=== PATIENT | male | born 1960 | race Caucasian/White ===

== ENCOUNTER 2016-05-22 12:54 | Emergency (ER) | payer SELFPAY ==
[~2016-05-22] VITALS: Ht 170.2 cm; Wt 100.0 kg
[~2016-05-22 12:54] MED LIST: COLC0.6T6 PO; CYCL-319 PO; HYD25 PO; HYDR-3498 PO; INDO25CA25 PO; LISI20TA11 PO; LORA10CA PO; TAMS-14 PO; ULT50 PO
[2016-05-22 13:00] VITALS: Ht 170.2 cm; Wt 100.0 kg
[2016-05-22] MEDS ORDERED: morphine 2 MG INJ IV STA (15:21)
[2016-05-22] MEDS ORDERED: KETOROLAC 30 MG INJ IV STA (15:21)
[2016-05-22 15:59] LABS: URINE BLOOD (Dip) POC 2+ (NEGATIVE)
[2016-05-22 16:06] LABS: BASOPHILS % 0.4 % (0.0-2.0); EOSINOPHILS # 0.2 10^3/ul (0.0-0.5); EOSINOPHILS % 1.9 % (0.0-7.0); HEMATOCRIT 48.4 % (42.0-52.0); HEMOGLOBIN 16.5 g/dl (14.0-18.0); LYMPHOCYTES # 1.7 10^3/ul (0.8-2.9); LYMPHOCYTES % 18.3 % (15.0-51.0); MEAN CORPUSCULAR HEMOGLOBIN 29.7 pg (29.0-33.0); MEAN CORPUSCULAR HGB CONC 34.1 g/dl (32.0-37.0); MEAN CORPUSCULAR VOLUME 86.9 fl (82.0-101.0); MEAN PLATELET VOLUME 8.3 fl (7.4-10.4); MONOCYTE # 0.6 10^3/ul (0.3-0.9); MONOCYTES % 6.2 % (0.0-11.0); NEUTROPHIL # 6.7 10^3/ul (1.6-7.5); NEUTROPHILS % 73.2 % (39.0-77.0); PLATELET COUNT 239 10^3/UL (140-440); RED BLOOD COUNT 5.57 10^6/ul (4.70-6.10); RED CELL DISTRIBUTION WIDTH 13.1 % (11.5-14.5); UNCORRECTED WBC 9.1 10^3/ul (4.8-10.8); WHITE BLOOD COUNT 9.1 10^3/ul (4.8-10.8)
[2016-05-22 16:07] LABS: CONDITION 1
[2016-05-22 16:41] LABS: ALBUMIN 4.6 g/dl (3.3-4.9); POTASSIUM 3.6 mmol/L (3.5-5.1)
[2016-05-22 16:43] LABS: BILIRUBIN,INDIRECT 0.5 mg/dl (0-1.1); BILIRUBIN,TOTAL 0.5 mg/dl (0.2-1.3); CREATININE 0.87 mg/dl (0.61-1.24)
[2016-05-22 16:44] LABS: ALBUMIN/GLOBULIN RATIO 1.04; CALCIUM 9.7 mg/dl (8.4-10.2)
[2016-05-22 18:02] VITALS: BP 143/88; PULSE 78; RESP 18; TEMP 98.2
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
== END 2016-05-22 18:10 | disposition home or self-care (01) ==
LOC: FTE 12:54
DX: M54.41 Lumbago with sciatica, right side (principal); I10 Essential (primary) hypertension; E11.9 Type 2 diabetes mellitus without complications; Z72.0 Tobacco use
CPT/HCPCS: 36415; 80053; 81003; 83690; 85025; 93005; 96374; 96375; 99284; J1885; J2270

== ENCOUNTER 2016-10-09 14:33 | Emergency (ER) | payer SELFPAY ==
[~2016-10-09] VITALS: Wt 103.5 kg
[~2016-10-09 14:33] MED LIST changes: +TRAM50TA2 PO; -ULT50 PO
[2016-10-09] MEDS ORDERED: ONDANSETRON (ODT) 4 MG TAB ODT STA (15:01)
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
[2016-10-09] MEDS ORDERED: DIPHENHYDRAMINE 25 MG CAP PO ONE (15:30)
[2016-10-09] MEDS ORDERED: METOCLOPRAMIDE 10 MG TAB PO ONE (15:30)
[2016-10-09] MEDS ORDERED: FIORICET PO (16:11)
[2016-10-09] MEDS ORDERED: ONDA4TAB8 PO (16:11)
--- NOTE | 2016-10-09 17:03 | RADRPT ---
PROCEDURE: CT Brain without contrast. CLINICAL INDICATION: Headache. Nausea. TECHNIQUE: A CT of the brain was performed on a multidetector CT scanner utilizing axial imaging f rom the skull base through the vertex without IV contrast. Multiplanar reformatted images were made . Images were reviewed on a PACS workstation. The CTDIvol is the 45 mGy and the DLP is at 712 mGyc m. COMPARISON: Right head CT February 04, 2016 FINDINGS: There is no intracranial hemorrhage, mass effect, or midline shift. No extra-axial fluid collection is seen. The ventricles and sulci are normal in size and configuration. The density of the brain is normal, and the beltran white matter differentiation appears well-preserved. The visualized paranasal sinuses and osseous structures are grossly unremarkable. IMPRESSION: 1. No evidence of acute intracranial pathology. 2. The brain is normal in appearance. .Elvin Dalton MD, Date Time Electronically viewed and signed by .Elvin Dalton MD, on 10/09/2016 17:03 .A/
[2016-10-09 17:26] VITALS: BP 138/74; PULSE 83; RESP 18
== END 2016-10-09 17:27 | disposition home or self-care (01) ==
LOC: FTE 14:33
DX: R51 Headache (principal); R11.0 Nausea; I10 Essential (primary) hypertension; E11.9 Type 2 diabetes mellitus without complications; Z87.891 Personal history of nicotine dependence
CPT/HCPCS: 70450

== ENCOUNTER 2017-01-19 08:19 | Emergency (ER) | payer SELFPAY ==
[~2017-01-19] VITALS: Ht 175.3 cm; Wt 95.0 kg
[~2017-01-19 08:19] MED LIST changes: +FIORICET PO; -HYD25 PO; +HYDR25TA6 PO; +ONDA4TAB8 PO
[2017-01-19 08:26] VITALS: Ht 175.3 cm; Wt 95.0 kg
[2017-01-19] MEDS ORDERED: IBUPROFEN 200 MG TAB PO ONE (09:00)
[2017-01-19 09:39] LABS: BASOPHILS % 0.4 % (0.0-2.0); EOSINOPHILS # 0.1 10^3/ul (0.0-0.5); HEMOGLOBIN 16.9 g/dl (14.0-18.0); LYMPHOCYTES # 2.5 10^3/ul (0.8-2.9); LYMPHOCYTES % 23.9 % (15.0-51.0); MEAN CORPUSCULAR HEMOGLOBIN 29.9 pg (29.0-33.0); MEAN CORPUSCULAR HGB CONC 34.5 g/dl (32.0-37.0); MEAN CORPUSCULAR VOLUME 86.6 fl (82.0-101.0); MEAN PLATELET VOLUME 10.3 fl (7.4-10.4); MONOCYTE # 0.6 10^3/ul (0.3-0.9); MONOCYTES % 5.7 % (0.0-11.0); NEUTROPHILS % 68.8 % (39.0-77.0); PLATELET COUNT 258 10^3/UL (140-415); RED BLOOD COUNT 5.66 10^6/ul (4.70-6.10); RED CELL DISTRIBUTION WIDTH 12.9 % (11.5-14.5); WHITE BLOOD COUNT 10.4 10^3/ul (4.8-10.8)
[2017-01-19 09:57] LABS: ADD UMIC YES; UR ASCORBIC ACID NEGATIVE (NEGATIVE); UR BILIRUBIN (Dip) NEGATIVE (NEGATIVE); UR BLOOD (Dip) 1+ mg/dL (NEGATIVE); UR CLARITY SLIGHTLY CLOUDY (CLEAR); UR COLOR AMBER (YELLOW); UR GLUCOSE (Dip) 3+ mg/dL (NEGATIVE); UR KETONES (Dip) NEGATIVE (NEGATIVE); UR LEUKOCYTE ESTERASE (Dip) NEGATIVE Leu/ul (NEGATIVE); UR MUCUS MANY /HPF (NONE SEEN); UR NITRITE (Dip) NEGATIVE (NEGATIVE); UR RBC 4 /HPF (0-5); UR SPECIFIC GRAVITY (Dip) 1.023 (1.003-1.030); UR TOTAL PROTEIN (Dip) 2+ mg/dl (NEGATIVE); UR UROBILINOGEN (Dip) 1+ mg/dL (NEGATIVE)
[2017-01-19 10:02] LABS: ALBUMIN 4.7 g/dl (3.3-4.9); ALBUMIN/GLOBULIN RATIO 1.06; BILIRUBIN,INDIRECT 0.4 mg/dl (0-1.1); BILIRUBIN,TOTAL 0.4 mg/dl (0.2-1.3); C-REACTIVE PROTEIN 1.4 mg/dl (0.0-0.9); CREATININE 0.82 mg/dl (0.61-1.24); POTASSIUM 4.2 mmol/L (3.5-5.1); TOTAL PROTEIN 9.1 g/dl (6.1-8.1)
--- NOTE | 2017-01-19 10:03 | RADRPT ---
PROCEDURE: Right elbow series CLINICAL INDICATION: Pain. TECHNIQUE: 4 views. AP, lateral, and oblique. COMPARISON: None FINDINGS: No effusions are visualized. No fractures are noted. Joint spaces are well maintained. No erosions are noted. There is a 6 mm posterior olecranon spur. There is mild adjacent soft tissue swelling. This may repr esent a mild olecranon bursitis. IMPRESSION: 1. 6-mm posterior olecranon spur. 2. Mild adjacent soft tissue swelling that may represent a mild olecranon bursitis. RPTAT: HGSG .Avni Hill MD, Date Time Electronically viewed and signed by .Avni Hill MD, on 01/19/2017 10:03 .G/
[2017-01-19] MEDS ORDERED: IBUP-1542 PO (10:52)
[2017-01-19 11:10] VITALS: BP 146/78; PULSE 79; RESP 18; TEMP 98.4
--- NOTE | 2017-01-19 13:27 | ERD ---
ER Documentation Chief Complaint Date/Time DATE: 01/19/17 TIME: 13:20 Chief Complaint R elbow pain for 3 days no recent injury HPI This is a 56-year-old male with a past medical history of diabetes, hypertension , hyperlipidemia that presents to the ER with right elbow pain that has been going on over the last 6 years after patient had a back surgery. Patient states that over the last 3 days he has been experiencing increased right elbow pain, redness and swelling. Patient states that pain is worse whenever he moves his elbow. He denies any shoulder or wrist pain. Patient denies any fevers or chills. He denies any trauma to the area. Pain is throbbing in quality is nonradiating. He has not tried any medication for his pain.Patient denies any numbness or tingling of his upper extremity. ROS 12 point review of systems was done, all negative except per HPI. Medications Home Meds Active Scripts Ibuprofen* (Motrin*) 600 Mg Tab, 600 MG PO Q6, #30 TAB Prov:LEA FREIRE 01/19/17 Ondansetron Hcl* (Zofran*) 4 Mg Tablet, 4 MG PO Q6H for NAUSEA AND/OR VOMITING, #20 TAB Prov:GIL DUNCAN NP 10/09/16 Acetamin/Butalbital/Caffeine* (Fioricet*) [id number] Tab, 1 TAB PO Q6H Y for PAIN, #15 TAB Prov:GIL DUNCAN NP 10/09/16 Loratadine* (Claritin*) 10 Mg Capsule, 10 MG PO DAILY, #30 CAP Prov:WONG ESPANA PA-C 02/04/16 Tramadol HCl (Tramadol HCl) 50 Mg Tablet, 50 MG PO Q4 Y for PAIN, #20 TAB Prov:WONG ESPANA PA-C 02/04/16 Colchicine* (Colcrys*) 0.6 Mg Tablet, 0.6 MG PO BID for 3 Days, TAB Prov:JUAN RAMON GRACIA MD 01/22/16 Indomethacin* (Indocin*) 25 Mg Capsule, 25 MG PO Q6, #20 CAP Prov:JUAN RAMON GRACIA MD 01/22/16 Tamsulosin Hcl* (Flomax*) 0.4 Mg Cap.er.24h, 0.4 MG PO qday, #30 CAP Prov:JHONATHAN HOPKINS DO 04/09/15 Tamsulosin Hcl* (Flomax*) 0.4 Mg Cap.er.24h, 0.4 MG PO BID, #30 CAP Prov:OSWALDOROC 03/13/15 Hydrochlorothiazide* (Hydrochlorothiazide*) 25 Mg Tab, 25 MG PO DAILY, #30 TAB 2 Refills Prov:JUAN RAMON GRACIA MD 01/27/15 Lisinopril* (Lisinopril*) 20 Mg Tablet, 20 MG PO DAILY, #30 TAB 2 Refills Prov:JUAN RAMON GRACIA MD 01/27/15 Tamsulosin Hcl* (Flomax*) 0.4 Mg Cap.er.24h, 0.4 MG PO DAILY, #20 CAP Prov:ISSAC JONES 01/03/15 Hydrocodone Bit-Acetaminophen* (Nixon*) 5-325 Mg Tab, 1 TAB PO Q6 Y for PAIN, # 10 TAB Prov:ADILSON BROWN NP 01/01/15 Cyclobenzaprine Hcl* (Cyclobenzaprine Hcl*) 10 Mg Tablet, 5 MG PO TID, #15 TAB Prov:ADILSON BROWN NP 01/01/15 Allergies Allergies: Coded Allergies: No Known Drug Allergies (Verified Allergy, Mild, 01/19/17) PMhx/Soc History of Surgery: Yes (Lumbar surgery) Anesthesia Reaction: No Hx Neurological Disorder: No Hx Respiratory Disorders: No Hx Cardiac Disorders: Yes (HTN) Hx Psychiatric Problems: No Hx Miscellaneous Medical Probl: Yes (LUMBAR BACK PAIN-FROM INJURY; DM) Hx Alcohol Use: No Hx Substance Use: No Hx Tobacco Use: Yes Smoking Status: Current some day smoker Physical Exam Vitals Vital Signs Date Time Temp Pulse Resp B/P Pulse Ox O2 Delivery O2 Flow Rate FiO2 01/19/17 11:10 98.4 79 18 146/78 97 Room Air 01/19/17 08:26 98.4 98 18 158/91 97 Physical Exam GENERAL: The patient is well developed and appropriate for usual state of health , in no apparent distress. HEENT: Atraumatic. CHEST: Clear to auscultation bilaterally. There are no rales, wheezes or rhonchi. HEART: Regular rate and rhythm. No murmurs, clicks, rubs or gallops. EXTREMITIES: The right elbow has an area of erythema and edema to the olecranon , tender to palpation over the olecranon. No obvious surface trauma, ecchymosis. No tenderness to palpation of the lateral lower medial epicondyles , or radial head. Patient has painful flexion and extension however he has full range of motion. He has normal supination and pronation. Normal muscle strength. Intact motor and sensation of the ulnar median and radial nerves. NEURO: Alert and oriented. Cranial nerves II through XII are intact. Motor strength in all 4 extremities with 5/5 strength. Sensation grossly intact. Normal speech and gait. SKIN: There is no apparent rash or petechia. The skin is warm and dry. Result Diagram: 01/19/1790401/19/17904 Results 24 hrs Laboratory Tests Test 01/19/17 09:05 01/19/17 09:15 White Blood Count 10.410^3/ul Red Blood Count 5.6610^6/ul Hemoglobin 16.9g/dl Hematocrit 49.0% Mean Corpuscular Volume 86.6fl Mean Corpuscular Hemoglobin 29.9pg Mean Corpuscular Hemoglobin Concent 34.5g/dl Red Cell Distribution Width 12.9% Platelet Count 50094^3/UL Mean Platelet Volume 10.3fl Neutrophils % 68.8% Lymphocytes % 23.9% Monocytes % 5.7% Eosinophils % 1.0% Basophils % 0.4% Nucleated Red Blood Cells % 0.0/100WBC Neutrophils # (Manual) 7.110^3/ul Lymphocytes # 2.510^3/ul Monocytes # 0.610^3/ul Eosinophils # 0.110^3/ul Basophils # 0.010^3/ul Nucleated Red Blood Cells # 0.010^3/ul Erythrocyte Sedimentation Rate 13mm/Hr Sodium Level 138mmol/L Potassium Level 4.2mmol/L Chloride Level 100mmol/L Carbon Dioxide Level 26mmol/L Anion Gap 16 Blood Urea Nitrogen 11mg/dl Creatinine 0.82mg/dl Glucose Level 306mg/dl Calcium Level 10.0mg/dl Total Bilirubin 0.4mg/dl Direct Bilirubin 0.00mg/dl Indirect Bilirubin 0.4mg/dl Aspartate Amino Transf (AST/SGOT) 41IU/L Alanine Aminotransferase (ALT/SGPT) 68IU/L Alkaline Phosphatase 103IU/L C-Reactive Protein 1.4mg/dl Total Protein 9.1g/dl Albumin 4.7g/dl Globulin 4.40g/dl Albumin/Globulin Ratio 1.06 Urine Color LORENZO Urine Clarity SLIGHTLY CLOUDY Urine pH 5.0 Urine Specific Porter 1.023 Urine Ketones NEGATIVEmg/dL Urine Nitrite NEGATIVEmg/dL Urine Bilirubin NEGATIVEmg/dL Urine Urobilinogen 1+mg/dL Urine Leukocyte Esterase NEGATIVELeu/ul Urine Microscopic RBC 4/HPF Urine Microscopic WBC 6/HPF Urine Granular Casts FEW/HPF Urine Mucus MANY/HPF Urine Hemoglobin 1+mg/dL Urine Glucose 3+mg/dL Urine Total Protein 2+mg/dl Current Medications Medications (Trade) Dose Ordered Sig/Jeff Route PRN Reason Start Time Stop Time Status Last Admin Dose Admin Ibuprofen (Motrin) 400 mg ONCE ONCE PO 01/19/17 09:00 01/19/17 09:02 DC 01/19/17 09:12 [place] [id number] Radiology Main Line: [phone] DIAGNOSTIC IMAGING REPORT Patient: ELMO BARRIOS : 1960 Age: 56 Sex: M MR #: [id number] DOS: 01/19/17 0000 Ordering MD: LEA FREIRE PA-C Location: [facility]TE Room/Bed: PROCEDURE: Right elbow series CLINICAL INDICATION: Pain. TECHNIQUE: 4 views. AP, lateral, and oblique. COMPARISON: None FINDINGS: No effusions are visualized. No fractures are noted. Joint spaces are well maintained. No erosions are noted. There is a 6 mm posterior olecranon spur. There is mild adjacent soft tissue swelling. This may represent a mild olecranon bursitis. IMPRESSION: 1. 6-mm posterior olecranon spur. 2. Mild adjacent soft tissue swelling that may represent a mild olecranon bursitis. RPTAT: HGSG .Avni Hill MD, MD Date Time Electronically viewed and signed by .Avni Hill MD, on 01/19/2017 10: 03 .G/ CC: LEA FREIRE/[facility] --=Differential diagnosis includes but is not limited to fracture, dislocation, olecranon bursitis, septic joint, septic arthritis, compartment syndrome. This is a 56-year-old male presents to the ER with right elbow pain. Patient does have acute on chronic pain, however appears to have developed olecranon bursitis. At this time patient is afebrile and well-appearing suspicion for infectious olecranon bursitis is low. Suspicion for septic joint is low. Suspicion for compartment syndrome is low. Patient blood sugar was elevated into the 300s, there is no evidence of ketones or acidosis patient stated that he has not gone to the doctor to get medications, however will go this week. Patient's blood pressure was elevated, patient however is not having any hypertensive emergency or urgency. I discussed the importance of being compliant with his medications. Patient will follow up with his primary care doctor within 1-2 days. He needs to return to ER sooner if symptoms worsen. My medical decision making shared with the patient he understands and agrees with plan. Departure Diagnosis: Primary Impression: Olecranon bursitis Condition: Stable Patient Instructions: Bursitis, Elbow (Olecranon) [facility]errals[facility] Usted se kern hecho un examen mdico de control que le indica que no est en elsa condicin que requiera tratamiento urgente en el Departamento de Emergencia. Un estudio ms profundo y el tratamiento de lopez condicin pueden esperar sin ningn riesgo hasta que usted sea atendida/o en el consultorio de lopez mdico o elsa cl yazmin. Es responsabilidad suya arreglar elsa heide para el seguimiento del rao. MANEJO DE CONDICIONES NO URGENTES EN EL FUTURO 1) Si usted tiene un mdico de atencin primaria: Usted debera llamar a lopez mdico de atencin primaria antes de venir al departamento de emergencia. Despus de las horas de consultorio, lopez doctor o lopez asociado/a est disponible por telfono. El mdico o enfermero de yovanny en el servicio telefnico puede asesorarle por jaydon medio para atender el problema, o rao contrario se puede programar elsa heide. 2) Si usted no tiene un mdico de atencin primaria: Llame al mdico o clnica de referencia que aparece abajo brittni las horas de consultorio para hacer elsa heide para que le vean. CLINICAS: [place] [address] [phone] [facility] [phone] [place] [address] [phone] [facility]. [place] [id number] [phone] [facility]. [place] [address] [phone] [facility]. [phone] [address] Additional Instructions: Llame al doctor MAANA y mabel elsa HEIDE PARA DENTRO DE 1-2 ZAMORA.Dgale a la secretaria que nosotros le instruimos hacer esta heide.Avise o llame si lopez condicin se empeora antes de la heide. Regresa aqui si peor o no mejor. LEA FREIRE Jan 19, 2017 13:27
== END 2017-01-19 11:11 | disposition home or self-care (01) ==
LOC: FTE 08:19
DX: M70.21 Olecranon bursitis, right elbow (principal); E11.9 Type 2 diabetes mellitus without complications; I10 Essential (primary) hypertension; F17.210 Nicotine dependence, cigarettes, uncomplicated; Y93.9 Activity, unspecified
CPT/HCPCS: 80053; 81001; 85025; 85651; 86140

== ENCOUNTER 2017-02-03 08:52 | Emergency (ER) | payer SELFPAY ==
[~2017-02-03] VITALS: Ht 167.6 cm; Wt 100.0 kg
[~2017-02-03 08:52] MED LIST changes: +IBUP-1542 PO
[2017-02-03 08:54] VITALS: Ht 167.6 cm; Wt 100.0 kg
[2017-02-03] MEDS ORDERED: NAPR-260 PO (09:48)
[2017-02-03] MEDS ORDERED: RANI150T9 PO (09:48)
[2017-02-03] MEDS ORDERED: IBUPROFEN 600 MG TAB PO ONE (10:00)
--- NOTE | 2017-02-03 14:18 | ERD ---
ER Documentation Chief Complaint Date/Time DATE: 02/03/17 TIME: 14:17 Chief Complaint Complains of left elbow pain x 1 month HPI This patient is a 56-year-old male presenting to the emergency department with complaints of acute on chronic right elbow pain for the past month. He states he hit it against a bed 2 days ago and the pain worsened. Symptoms are daily. He is requesting refill of ibuprofen 600 mg pain. He did have an injury to this elbow 7 years ago and since then it has been causing him pain intermittently. He denies fevers, chills, swelling or redness of the joint, or other symptoms. ROS All systems reviewed and are negative except as per history of present illness. Medications Home Meds Active Scripts Ranitidine Hcl* (Zantac*) 150 Mg Tablet, 150 MG PO BID Y for EPIGASTRIC PAIN, # 30 TAB Prov:MYLA FIGUEROA PA-C 02/03/17 Naproxen* (Naprosyn*) 500 Mg Tablet, 500 MG PO BID Y for PAIN AND/OR INFLAMMATION, #30 TAB Prov:MYLA FIGUEROA PA-C 02/03/17 Ibuprofen* (Motrin*) 600 Mg Tab, 600 MG PO Q6, #30 TAB Prov:LEA FREIRE 01/19/17 Ondansetron Hcl* (Zofran*) 4 Mg Tablet, 4 MG PO Q6H for NAUSEA AND/OR VOMITING, #20 TAB Prov:GIL DUNCAN NP 10/09/16 Acetamin/Butalbital/Caffeine* (Fioricet*) [id number] Tab, 1 TAB PO Q6H Y for PAIN, #15 TAB Prov:GIL DUNCAN NP 10/09/16 Loratadine* (Claritin*) 10 Mg Capsule, 10 MG PO DAILY, #30 CAP Prov:WONG ESPANA PA-C 02/04/16 Tramadol HCl (Tramadol HCl) 50 Mg Tablet, 50 MG PO Q4 Y for PAIN, #20 TAB Prov:WONG ESPANA PA-C 02/04/16 Colchicine* (Colcrys*) 0.6 Mg Tablet, 0.6 MG PO BID for 3 Days, TAB Prov:JUAN RAMON GRACIA MD 01/22/16 Indomethacin* (Indocin*) 25 Mg Capsule, 25 MG PO Q6, #20 CAP Prov:JUAN RAMON GRACIA MD 01/22/16 Tamsulosin Hcl* (Flomax*) 0.4 Mg Cap.er.24h, 0.4 MG PO qday, #30 CAP Prov:KARLAALTAGRACIAHARJITSTEFFANIE QUINN 04/09/15 Tamsulosin Hcl* (Flomax*) 0.4 Mg Cap.er.24h, 0.4 MG PO BID, #30 CAP Prov:ROC CHACON 03/13/15 Hydrochlorothiazide* (Hydrochlorothiazide*) 25 Mg Tab, 25 MG PO DAILY, #30 TAB 2 Refills Prov:JUAN RAMON GRACIA MD 01/27/15 Lisinopril* (Lisinopril*) 20 Mg Tablet, 20 MG PO DAILY, #30 TAB 2 Refills Prov:JUAN RAMON GRACIA MD 01/27/15 Tamsulosin Hcl* (Flomax*) 0.4 Mg Cap.er.24h, 0.4 MG PO DAILY, #20 CAP Prov:ISSAC JONES 01/03/15 Hydrocodone Bit-Acetaminophen* (R[place]*) 5-325 Mg Tab, 1 TAB PO Q6 Y for PAIN, # 10 TAB Prov:ADILSON BROWN NP 01/01/15 Cyclobenzaprine Hcl* (Cyclobenzaprine Hcl*) 10 Mg Tablet, 5 MG PO TID, #15 TAB Prov:ADILSON BROWN NP 01/01/15 Allergies Allergies: Coded Allergies: No Known Drug Allergies (Verified Allergy, Mild, 02/03/17) PMhx/Soc History of Surgery: Yes (Lumbar surgery) Anesthesia Reaction: No Hx Neurological Disorder: No Hx Respiratory Disorders: No Hx Cardiac Disorders: Yes (HTN) Hx Psychiatric Problems: No Hx Miscellaneous Medical Probl: Yes (LUMBAR BACK PAIN-FROM INJURY; DM) Hx Alcohol Use: No Hx Substance Use: No Hx Tobacco Use: Yes Smoking Status: Current every day smoker Physical Exam Vitals Vital Signs Date Time Temp Pulse Resp B/P Pulse Ox O2 Delivery O2 Flow Rate FiO2 02/03/17 08:54 96.9 86 20 160/90 93 Physical Exam Const: Nontoxic, well-appearing male in no acute distress. Head: Atraumatic Eyes: Normal Conjunctiva ENT: Normal External Ears, Nose and Mouth. Neck: Full range of motion. Skin: No petechiae or rashes Ext: Subjective tenderness palpation about the right elbow joint. No swelling, erythema, warmth, or other abnormalities noted on exam. Neur: Awake and alert Psych: Normal Mood and Affect Results 24 hrs Current Medications Medications (Trade) Dose Ordered Sig/Jeff Route PRN Reason Start Time Stop Time Status Last Admin Dose Admin Ibuprofen (Motrin) 600 mg ONCE ONCE PO 02/03/17 10:00 02/03/17 10:01 DC 02/03/17 09:44 Procedures/MDM 56-year-old male presents to the emergency department for acute on chronic right elbow pain. He has had negative x-rays in the past and I did not feel they were indicated to be ordered today. He was given a refill of his ibuprofen 600 mg, as requested. He was advised to only take the pain medication when needed. He was also given a 600 mg ibuprofen here in the department. He was feeling improved prior to discharge. I have low suspicion for septic joint, cellulitis, sepsis, or other emergent conditions at time of discharge. The patient agreed with the discharge plan a diagnosis. His questions and concerns were addressed. He is to return immediately for new or worsening symptoms. Close follow-up with the primary care physician in the next 1-2 days was advised. Departure Diagnosis: Primary Impression: Encounter for medication refill Additional Impression: Chronic pain of right elbow Condition: Stable Patient Instructions: Taking Medicine Safely Referrals: [facility] Usted se kern hecho un examen mdico de control que le indica que no est en elsa condicin que requiera tratamiento urgente en el Departamento de Emergencia. Un estudio ms profundo y el tratamiento de lopez condicin pueden esperar sin ningn riesgo hasta que usted sea atendida/o en el consultorio de lopez mdico o elsa cl yazmin. Es responsabilidad suya arreglar elsa lopez para el seguimiento del rao. MANEJO DE CONDICIONES NO URGENTES EN EL FUTURO 1) Si usted tiene un mdico de atencin primaria: Usted debera llamar a lopez mdico de atencin primaria antes de venir al departamento de emergencia. Despus de las horas de consultorio, lopez doctor o lopez asociado/a est disponible por telfono. El mdico o enfermero de yovanny en el servicio telefnico puede asesorarle por jaydon medio para atender el problema, o rao contrario se puede programar elsa lopez. 2) Si usted no tiene un mdico de atencin primaria: Llame al mdico o clnica de referencia que aparece abajo brittni las horas de consultorio para hacer elsa lopez para que le vean. CLINICAS: [place] [address] [phone] [facility] [phone] [facility] [phone] [place] [address] [phone] [place] [id number] [phone] [place] [address] [phone] Additional Instructions: No mas mejor en 2-3 wright, regresar. Mas peor en 24 horas, regresear rapidamente. Ir a doctor primario in 5-7 wright. Usar instrucciones cuando itzel medicamento. MYLA FIGUEROA PA-C Feb 03, 2017 14:18
== END 2017-02-03 10:25 | disposition home or self-care (01) ==
LOC: FTE 08:52
DX: Z76.0 Encounter for issue of repeat prescription (principal); I10 Essential (primary) hypertension; F17.210 Nicotine dependence, cigarettes, uncomplicated; E11.9 Type 2 diabetes mellitus without complications
CPT/HCPCS: 99283

== ENCOUNTER 2017-03-09 08:55 | Emergency (ER) | payer SELFPAY ==
[~2017-03-09] VITALS: Ht 175.3 cm; Wt 99.5 kg
[~2017-03-09 08:55] MED LIST changes: +NAPR-260 PO; +RANI150T9 PO
[2017-03-09 08:57] VITALS: Ht 175.3 cm; Wt 99.5 kg
--- NOTE | 2017-03-09 10:20 | ERD ---
ER Documentation Chief Complaint Chief Complaint BACK PAIN X11 YEARS HPI 56-year-old male presents to the emergency department requesting a refill for his medications for diabetes, BPH, hypertension, and chronic back pain. The patient has not been able to establish primary care yet but he states that he is working on it. No acute complaints at this time, refers good compliance with medications, denies side effects. ROS All systems reviewed and are negative except as per history of present illness. Medications Home Meds Active Scripts Metformin* (Glucophage*) 500 Mg Tab, 500 MG PO DAILY, #30 TAB 2 Refills Prov:ELEONORA DUNLAP MD 03/09/17 Hydrochlorothiazide* (Hydrochlorothiazide*) 25 Mg Tab, 25 MG PO DAILY, #30 TAB Prov:ELEONORA DUNLAP MD 03/09/17 Hydrocodone/Acetaminophen (Ellinger 5-325 Tablet) 1 Each Tablet, 1 TAB PO Q6H Y for PAIN, #20 TAB Prov:ELEONORA DUNLAP MD 03/09/17 Ranitidine Hcl* (Zantac*) 150 Mg Tablet, 150 MG PO BID Y for EPIGASTRIC PAIN, # 30 TAB Prov:ELEONORA DUNLAP MD 03/09/17 Tamsulosin Hcl* (Flomax*) 0.4 Mg Cap.er.24h, 0.4 MG PO qday, #30 CAP Prov:ELEONORA DUNLAP MD 03/09/17 Naproxen* (Naprosyn*) 500 Mg Tablet, 500 MG PO BID Y for PAIN AND/OR INFLAMMATION, #30 TAB Prov:MYLA FIGUEROA PA-C 02/03/17 Ibuprofen* (Motrin*) 600 Mg Tab, 600 MG PO Q6, #30 TAB Prov:LEA FREIRE 01/19/17 Ondansetron Hcl* (Zofran*) 4 Mg Tablet, 4 MG PO Q6H for NAUSEA AND/OR VOMITING, #20 TAB Prov:GIL DUNCAN NP 10/09/16 Acetamin/Butalbital/Caffeine* (Fioricet*) [id number] Tab, 1 TAB PO Q6H Y for PAIN, #15 TAB Prov:GIL DUNCAN NP 10/09/16 Loratadine* (Claritin*) 10 Mg Capsule, 10 MG PO DAILY, #30 CAP Prov:WONG ESPANA PA-C 02/04/16 Tramadol HCl (Tramadol HCl) 50 Mg Tablet, 50 MG PO Q4 Y for PAIN, #20 TAB Prov:WONG ESPANA PA-C 02/04/16 Colchicine* (Colcrys*) 0.6 Mg Tablet, 0.6 MG PO BID for 3 Days, TAB Prov:JUAN RAMON GRACIA MD 01/22/16 Indomethacin* (Indocin*) 25 Mg Capsule, 25 MG PO Q6, #20 CAP Prov:JUAN RAMON GRACIA MD 01/22/16 Tamsulosin Hcl* (Flomax*) 0.4 Mg Cap.er.24h, 0.4 MG PO BID, #30 CAP Prov:ROC CHACON 03/13/15 Hydrochlorothiazide* (Hydrochlorothiazide*) 25 Mg Tab, 25 MG PO DAILY, #30 TAB 2 Refills Prov:JUAN RAMON GRACIA MD 01/27/15 Lisinopril* (Lisinopril*) 20 Mg Tablet, 20 MG PO DAILY, #30 TAB 2 Refills Prov:JUAN RAMON GRACIA MD 01/27/15 Tamsulosin Hcl* (Flomax*) 0.4 Mg Cap.er.24h, 0.4 MG PO DAILY, #20 CAP Prov:ISSAC JONES 01/03/15 Hydrocodone Bit-Acetaminophen* (Ellinger*) 5-325 Mg Tab, 1 TAB PO Q6 Y for PAIN, # 10 TAB Prov:ADILSON BROWN NP 01/01/15 Cyclobenzaprine Hcl* (Cyclobenzaprine Hcl*) 10 Mg Tablet, 5 MG PO TID, #15 TAB Prov:ADILSON BROWN NP 01/01/15 Allergies Allergies: Coded Allergies: No Known Drug Allergies (Verified Allergy, Mild, 02/03/17) PMhx/Soc History of Surgery: Yes (Lumbar surgery) Anesthesia Reaction: No Hx Neurological Disorder: No Hx Respiratory Disorders: No Hx Cardiac Disorders: Yes (HTN) Hx Psychiatric Problems: No Hx Miscellaneous Medical Probl: Yes (LUMBAR BACK PAIN-FROM INJURY; DM) Hx Alcohol Use: No Hx Substance Use: No Hx Tobacco Use: Yes Smoking Status: Light tobacco smoker Physical Exam Vitals Vital Signs Date Time Temp Pulse Resp B/P Pulse Ox O2 Delivery O2 Flow Rate FiO2 03/09/17 08:57 98.1 86 16 134/97 96 Physical Exam Patient is in no acute distress, vital signs stable. Alert and fully oriented. EYES: PERRLA, EOMI, Sclera and conjunctiva appear normal. EARS: Canals clear, tympanic membranes WNL THROAT: Normal oropharynx. NECK: Supple, No lymphadenopathy. Full ROM without pain or tenderness. HEART: RRR, no rubs, murmurs, clicks or gallops. LUNGS: Clear to auscultation. ABDOMEN: Soft, non-tender without masses or hepatosplenomegaly. EXTREMITIES: No edema bilaterally. BACK: Normal inspection, the patient wears a brace, no vertebral tenderness, bilateral muscle spasm noticed. Decreased range of motion of the lumbar spine for flexion and lateral rotation. NEURO: Sensation preserved, DTR 2+, no motor deficit Procedures/MDM 56-year-old male on disability for chronic back pain since 2004, presents to the emergency department requesting a refill for his medications. The patient currently does not have a primary care physician. Physical examination unremarkable, no new complaints. The patient was discharged home with a prescription for his medications for diabetes, BPH, hypertension and chronic back pain. The patient was recommended to establish primary care and the list of the free clinics has been provided. The patient can return to the emergency department for persistent or worsening of symptoms Departure Diagnosis: Primary Impression: Chronic back pain Additional Impression: Encounter for medication refill Condition: Stable Additional Instructions: Muchas maricruz por [facility] para lopez servicio. Esperamos que en lopez visita a la stevie de emergencia lopez problema medico haya sido solucionado y que se sienta mucho mejor. Para estar seguros que lopez mejoria sigue en proceso, le pedimos el favor de hacer elsa lopez de seguimiento medico con lopez doctor primario en los proximos 2-4 wright. Lleve con usted estos documentos y las medicinas recetadas. Si viktoriya sintomas empeoran y no puede srinivas a lopez doctor, por favor regrese a stevie de emergencia. ELEONORA DUNLAP MD Mar 09, 2017 10:20
[2017-03-09] MEDS ORDERED: HYDR-906 PO (10:23)
[2017-03-09] MEDS ORDERED: TAMS-14 PO (10:23)
[2017-03-09] MEDS ORDERED: RANI150T9 PO (10:23)
[2017-03-09] MEDS ORDERED: HYDR25TA6 PO (10:23)
[2017-03-09] MEDS ORDERED: METF500T4 PO (10:23)
== END 2017-03-09 10:51 | disposition home or self-care (01) ==
LOC: FTE 08:55
DX: M54.9 Dorsalgia, unspecified (principal); I10 Essential (primary) hypertension; E11.9 Type 2 diabetes mellitus without complications; F17.210 Nicotine dependence, cigarettes, uncomplicated; Z79.84 Long term (current) use of oral hypoglycemic drugs
CPT/HCPCS: 99281

== ENCOUNTER 2017-04-27 10:14 | Emergency (ER) | payer SELFPAY ==
[~2017-04-27] VITALS: Ht 160 cm; Wt 97.4 kg
[~2017-04-27 10:14] MED LIST changes: +HYDR-906 PO; +METF500T4 PO
[2017-04-27 10:22] VITALS: Ht 160 cm; Wt 97.4 kg
[2017-04-27] MEDS ORDERED: HYDR25TA6 PO (11:59)
[2017-04-27] MEDS ORDERED: TAMS-14 PO (11:59)
[2017-04-27] MEDS ORDERED: METF500T4 PO (11:59)
[2017-04-27] MEDS ORDERED: NAPR-260 PO (11:59)
[2017-04-27 12:11] VITALS: BP 136/90; PULSE 95; RESP 18; TEMP 98.4
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
== END 2017-04-27 12:12 | disposition home or self-care (01) ==
LOC: FTE 10:14
DX: G89.29 Other chronic pain (principal); E11.9 Type 2 diabetes mellitus without complications; I10 Essential (primary) hypertension; F17.210 Nicotine dependence, cigarettes, uncomplicated; Z76.0 Encounter for issue of repeat prescription
CPT/HCPCS: 82962; 99283

== ENCOUNTER 2017-05-17 08:31 | Emergency (ER) | END 2017-05-17 09:15 | disposition home or self-care (01) ==

== ENCOUNTER 2017-06-12 16:30 | Emergency (ER) | END 2017-06-12 19:30 | disposition home or self-care (01) ==

== ENCOUNTER 2017-08-21 12:20 | Emergency (ER) | END 2017-08-21 14:19 | disposition home or self-care (01) ==

== ENCOUNTER 2018-03-24 19:21 | Emergency (ER) | END 2018-03-25 02:09 | disposition home or self-care (01) ==

== ENCOUNTER 2018-05-31 10:56 | Emergency (ER) | payer MEDICAID, OTHER ==
[~2018-05-31] VITALS: Ht 170.2 cm; Wt 97.6 kg
[~2018-05-31 10:56] MED LIST changes: +ACET-141 PO; -COLC0.6T6 PO; -CYCL-319 PO; -FIORICET PO; -HYDR-3498 PO; -HYDR-906 PO; -HYDR25TA6 PO; -INDO25CA25 PO; -LISI20TA11 PO; -LORA10CA PO; -METF500T4 PO; +METH750T93 PO; -NAPR-260 PO; +NAPR-985 PO; -ONDA4TAB8 PO; -RANI150T9 PO; -TAMS-14 PO; -TRAM50TA2 PO
[2018-05-31 10:57] VITALS: Ht 170.2 cm; Wt 97.6 kg
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
[2018-05-31] MEDS ORDERED: IBUP-1542 PO (13:44)
[2018-05-31] MEDS ORDERED: METF-849 PO (13:45)
[2018-05-31] MEDS ORDERED: HYDR-4011 PO (13:47)
[2018-05-31 14:13] VITALS: BP 140/78; PULSE 80; RESP 20
== END 2018-05-31 14:24 | disposition home or self-care (01) ==
LOC: E/R 10:56
DX: M54.9 Dorsalgia, unspecified (principal); I10 Essential (primary) hypertension; E11.9 Type 2 diabetes mellitus without complications; Z79.84 Long term (current) use of oral hypoglycemic drugs
CPT/HCPCS: 80053; 81003; 82962; 83690; 85025; 99283

== ENCOUNTER 2018-06-08 13:46 | Emergency (ER) | payer SELFPAY ==
[~2018-06-08] VITALS: Wt 97.9 kg
[~2018-06-08 13:46] MED LIST changes: +HYDR-4011 PO; +METF-849 PO
[2018-06-08 13:52] VITALS: BP 166/98; PULSE 89; RESP 12; Wt 97.9 kg
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
[2018-06-08] MEDS ORDERED: NAPR-985 PO (16:48)
== END 2018-06-08 16:58 | disposition home or self-care (01) ==
LOC: FTE 13:46
DX: M54.9 Dorsalgia, unspecified (principal); I10 Essential (primary) hypertension; E11.9 Type 2 diabetes mellitus without complications; Z79.84 Long term (current) use of oral hypoglycemic drugs
CPT/HCPCS: 81003; 82962; 99282

== ENCOUNTER 2018-07-26 12:10 | Emergency (ER) | payer SELFPAY ==
[~2018-07-26] VITALS: Wt 96.0 kg
[2018-07-26 12:22] VITALS: BP 136/90; PULSE 102; RESP 19
[2018-07-26] MEDS ORDERED: NAPR-985 PO (13:25)
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
== END 2018-07-26 15:16 | disposition home or self-care (01) ==
LOC: FTE 12:10
DX: M54.9 Dorsalgia, unspecified (principal); I10 Essential (primary) hypertension; E11.9 Type 2 diabetes mellitus without complications; Z76.0 Encounter for issue of repeat prescription; Z79.84 Long term (current) use of oral hypoglycemic drugs
CPT/HCPCS: 99282

== ENCOUNTER 2018-08-12 19:45 | Emergency (ER) | payer OTHER ==
[~2018-08-12] VITALS: Wt 98.0 kg
[2018-08-13] MEDS ORDERED: KETOROLAC 30 MG INJ IM STA (01:47)
[2018-08-13] MEDS ORDERED: NAPR-985 PO (01:48)
[2018-08-13] MEDS ORDERED: TRAM50TA2 PO (01:48)
[2018-08-13] MEDS ORDERED: traMADol 50 MG TAB PO ONE (02:00)
[2018-08-13 02:16] VITALS: BP 180/101; PULSE 64; RESP 20
--- NOTE | 2018-08-14 01:39 | ERD ---
ER Documentation Chief Complaint Chief Complaint gen body pain worse x1mo; pain since fall in 2004. states no PMD HPI History of Present Illness: Patient coming in today with complaint of generalized body pain that has been present for 1 month. Patient reports a fall during 2004 that led to chronic back pain. Patient denies fever, chills, malaise, decreased appetite, weight loss. Patient denies abdominal pain, dysuria, ear pain, throat pain. At home pharmacological/nonpharmacological treatment for symptoms: Denies Denies social concerns; Denies recent foreign travel ROS All systems reviewed and are negative except as per history of present illness. Medications Home Meds Active Scripts Tramadol HCl (Tramadol HCl) 50 Mg Tablet, 50 MG PO Q12 PRN for PAIN, #8 TAB Prov:VIJAY STEIN NP 08/13/18 Naproxen* (Naprosyn*) 500 Mg Tablet, 500 MG PO BID PRN for PAIN AND/OR INFLAMMATION, #30 TAB Prov:VIJAY STEIN NP 08/13/18 Naproxen* (Naprosyn*) 500 Mg Tablet, 500 MG PO BID PRN for PAIN AND/OR INFLAMMATION, #30 TAB Prov:ISSAC JONES 07/26/18 Naproxen* (Naprosyn*) 500 Mg Tablet, 500 MG PO BID PRN for PAIN AND/OR INFLAMMATION, #30 TAB Prov:CONSTANCE GOMEZ PA-C 06/08/18 Hydrocodone/Acetaminophen (Mcgrady 5-325 Tablet) 1 Each Tablet, 1 TAB PO Q6H PRN for PAIN, #7 TAB Prov:KAYLIE CARABALLO MD 05/31/18 Metformin* (Glucophage*) 500 Mg Tab, 500 MG PO DAILY, #20 TAB Prov:KAYLIE CARABALLO MD 05/31/18 Ibuprofen* (Motrin*) 600 Mg Tab, 600 MG PO Q6H PRN for PAIN AND OR ELEVATED TEMP, #20 TAB Prov:KAYLIE CARABALLO MD 05/31/18 Methocarbamol* (Robaxin*) 750 Mg Tablet, 750 MG PO TID, #30 TAB Prov:KAYLIE OCASIO DO 05/19/18 Acetaminophen* (Acetaminophen*) 500 MG Extra Strength Tablet, 500 MG PO Q4H PRN for PAIN AND OR ELEVATED TEMP, #30 TAB Prov:KAYLIE OCASIO DO 05/19/18 Ibuprofen* (Motrin*) 600 Mg Tab, 600 MG PO Q6H PRN for PAIN AND OR ELEVATED TEMP, #30 TAB Prov:KAYLIE OCASIO DO 05/19/18 Naproxen* (Naprosyn*) 500 Mg Tablet, 500 MG PO BID PRN for PAIN AND/OR INFLAMMATION, #30 TAB Prov:KAYLIE CARABALLO MD 03/25/18 Allergies Allergies: Coded Allergies: No Known Drug Allergies (Unverified Allergy, Unknown, 06/08/18) PMhx/Soc History of Surgery: Yes (Lumbar surgery) Anesthesia Reaction: No Hx Neurological Disorder: No Hx Respiratory Disorders: No Hx Cardiac Disorders: Yes (HTN) Hx Psychiatric Problems: No Hx Miscellaneous Medical Probl: Yes (LUMBAR BACK PAIN-FROM INJURY; DM, BPH) Hx Alcohol Use: No Hx Substance Use: No Hx Tobacco Use: No FmHx Family History: diabetes; No coronary disease Physical Exam Vitals Vital Signs Date Temp Pulse Resp B/P (MAP) Pulse Ox O2 O2 Flow FiO2 Time Delivery Rate 08/13/18 98.0 64 20 180/101 98 Room Air 02:16 (127) 08/12/18 98.0 92 16 160/70 97 19:51 (100) Physical Exam Const: No acute distress Head: Atraumatic Eyes: Normal Conjunctiva ENT: Normal External Ears, Nose and Mouth. Neck: Full range of motion. No meningismus. Resp: Clear to auscultation bilaterally Cardio: Regular rate and rhythm, no murmurs Abd: Soft, non tender, non distended. Normal bowel sounds. Obese.. Skin: No petechiae or rashes Back: No midline or flank tenderness Ext: No cyanosis, or edema Neur: Awake and alert Psych: Normal Mood and Affect Result Diagram: 08/13/18 0016 08/13/18 0016 Results 24 hrs Laboratory Tests Test 08/13/18 00:16 White Blood Count 10.2 10^3/ul Red Blood Count 5.42 10^6/ul Hemoglobin 15.7 g/dl Hematocrit 46.9 % Mean Corpuscular Volume 86.5 fl Mean Corpuscular Hemoglobin 29.0 pg Mean Corpuscular Hemoglobin Concent 33.5 g/dl Red Cell Distribution Width 12.8 % Platelet Count 287 10^3/UL Mean Platelet Volume 10.1 fl Immature Granulocytes % 0.300 % Neutrophils % 54.5 % Lymphocytes % 37.2 % Monocytes % 5.9 % Eosinophils % 1.6 % Basophils % 0.5 % Nucleated Red Blood Cells % 0.0 /100WBC Immature Granulocytes # 0.030 10^3/ul Neutrophils # 5.6 10^3/ul Lymphocytes # 3.8 10^3/ul Monocytes # 0.6 10^3/ul Eosinophils # 0.2 10^3/ul Basophils # 0.1 10^3/ul Nucleated Red Blood Cells # 0.0 10^3/ul Erythrocyte Sedimentation Rate 13 mm/Hr Sodium Level 138 mmol/L Potassium Level 4.7 mmol/L Chloride Level 97 mmol/L Carbon Dioxide Level 29 mmol/L Anion Gap 12 Blood Urea Nitrogen 19 mg/dl Creatinine 0.77 mg/dl Est Glomerular Filtrat Rate mL/min > 60 mL/min Glucose Level 256 mg/dl Calcium Level 10.0 mg/dl Total Bilirubin 0.3 mg/dl Direct Bilirubin 0.00 mg/dl Indirect Bilirubin 0.3 mg/dl Aspartate Amino Transf (AST/SGOT) 43 IU/L Alanine Aminotransferase (ALT/SGPT) 52 IU/L Alkaline Phosphatase 90 IU/L C-Reactive Protein 1.1 mg/dl Total Protein 8.7 g/dl Albumin 4.6 g/dl Globulin 4.10 g/dl Albumin/Globulin Ratio 1.12 Current Medications Medications Dose Sig/Jeff Start Time Status Last (Trade) Ordered Route PRN Stop Time Admin Dose Reason Admin Ketorolac 30 mg ONCE STAT 08/13/18 DC 08/13/18 Tromethamine IM 01:47 01:54 (Toradol) 08/13/18 01:48 Tramadol 50 mg ONCE ONCE 08/13/18 DC 08/13/18 HCl PO 02:00 01:53 (Ultram) 08/13/18 02:01 Clonidine 0.1 mg ONCE ONCE 08/13/18 DC 08/13/18 (Catapres) PO 02:30 02:22 08/13/18 02:31 Procedures/MDM ED course includes a thorough examination and history. Medications: -- Imaging: -- Labs: CBC, CMP, inflammatory markers Low suspicion for life-threatening medical emergency. Suspicion for infectious process, leukemia, pancytopenia. Otherwise healthy patient presenting with constellation of symptoms likely representing uncomplicated body pain, hyperglycemia as characterized by history, physical exam findings. CBC with no leukocytosis, hemoglobin hematocrit stable. CMP electrolytes within normal limits, exception of glucose elevated. Inflammatory markers negative. . No respiratory distress, otherwise relatively well appearing and nontoxic. Patient educated on diagnoses, prescriptions, follow-up care, return precautions. Strict return precautions given for worsening condition; questions answered discharge. Will give 1 dose of Toradol and opiate before discharge. Patient reassessment: Patient hypertensive upon discharge, will give one-time dose of clonidine. She reports he has history of hypertension but has been noncompliant with medications. Patient is asymptomatic to hypertension. Disposition for discharge with followup in 2 days with PCP/clinic. Departure Diagnosis: Primary Impression: Pain Additional Impressions: Hyperglycemia HTN (hypertension) Hypertension type: unspecified Qualified Codes: I10 - Essential (primary) hypertension Condition: Stable Referrals: [facility] YOU HAVE RECEIVED A MEDICAL SCREENING EXAM AND THE RESULTS INDICATE THAT YOU DO NOT HAVE A CONDITION THAT REQUIRES URGENT TREATMENT IN THE EMERGENCY DEPARTMENT. FURTHER EVALUATION AND TREATMENT OF YOUR CONDITION CAN WAIT UNTIL YOU ARE SEEN IN YOUR DOCTORS OFFICE WITHIN THE NEXT 1-2 DAYS. IT IS YOUR RESPONSIBILITY TO MAKE AN APPOINTMENT FOR [facility]UP [facility]ARE. IF YOU HAVE A PRIMARY DOCTOR --you should call your primary doctor and schedule an appointment IF YOU DO NOT HAVE A PRIMARY DOCTOR YOU CAN CALL OUR PHYSICIAN REFERRAL HOTLINE AT IF YOU CAN NOT AFFORD TO SEE A PHYSICIAN YOU CAN CHOSE FROM THE FOLLOWING [facility], [facility] [address] [facility]. [facility] [address] [facility] [address] [facility] [facility] [address] [facility] [facility] [address] [facility]. [address] [facility]. [facility] YOU HAVE RECEIVED A MEDICAL SCREENING EXAM AND THE RESULTS INDICATE THAT YOU DO NOT HAVE A CONDITION THAT REQUIRES URGENT TREATMENT IN THE EMERGENCY DEPARTMENT. FURTHER EVALUATION AND TREATMENT OF YOUR CONDITION CAN WAIT UNTIL YOU ARE SEEN IN YOUR DOCTORS OFFICE WITHIN THE NEXT 1-2 DAYS. IT IS YOUR RESPONSIBILITY TO MAKE AN APPOINTMENT FOR [facility]-UP CARE. IF YOU HAVE A PRIMARY DOCTOR --you should call your primary doctor and schedule and appointment IF YOU DO NOT HAVE A PRIMARY DOCTOR YOU CAN CALL OUR PHYSICIAN REFERRAL HOTLINE AT . IF YOU CAN NOT AFFORD TO SEE A PHYSICIAN YOU CAN CHOSE FROM THE FOLLOWING [facility] INSTITUTIONS: [facility] [address] [place] [address] [facility] [address] [place] [address] [facility] [address] [place] [address] Additional Instructions: Thank you very much for allowing us to participate in your care. Your health and safety is our top priority at [facility]. It is important to read all discharge instructions and education provided in your discharge packet. Call your primary care doctor TOMORROW for an appointment during the next 2-4 days and bring all the information and medications prescribed. Your blood work was normal except for your blood sugar. Is important to follow-up with your primary care doctor for reevaluation of your diabetes AND hypertension; your medication need to be changed if you are continuing to have high readings. Unfortunately we cannot find the source of your chronic pain, but your primary care doctor can do further evaluation and testing. I am giving you Naprosyn for MILD pain/inflammation, and tramadol for moderate to severe pain. Only take the tramadol as needed. Have prescriptions filled and follow precisely the directions on the label. If the symptoms get worse and your provider is unavailable, return to the Emergency Department immediately. VIJAY STEIN NP Aug 14, 2018 01:39
== END 2018-08-13 02:25 | disposition home or self-care (01) ==
LOC: FTE 19:45
DX: M54.5 Low back pain (principal); I10 Essential (primary) hypertension; E11.65 Type 2 diabetes mellitus with hyperglycemia; Z79.84 Long term (current) use of oral hypoglycemic drugs
CPT/HCPCS: 80053; 85025; 85651; 86140; J1885; 36415; 96372